=== PATIENT | male | born 1980 | race American Indian/Alaskan Native ===

== ENCOUNTER 2019-04-29 15:41 | Emergency (ER) | payer MEDICAID ==
--- NOTE | 2019-04-29 15:50 | Emergency Department Report ---
Blank Doc - Documentation Documentation: This is a 39-year-old male that presents with n/v and abd pain. Also has right foot numbness and tingling sensation. This initial assessment/diagnostic orders/clinical plan/treatment(s) is/are subject to change based on patient's health status, clinical progression and re-assessment by fellow clinical providers in the ED. Further treatment and workup at subsequent clinical providers discretion. Patient/guardians urged not to elope from the ED as their condition may be serious if not clinically assessed and managed. Initial orders include: 1- Patient sent to [facility] for further evaluation and treatment 2- labs 3- UA
[2019-04-29 16:18] LABS: Basophils # (Auto) 0.1 K/mm3 (0.0-0.1); Basophils % (Auto) 0.7 % (0.0-1.8); Eosinophils # (Auto) 0.2 K/mm3 (0.0-0.4); Eosinophils % (Auto) 1.9 % (0.0-4.3); Hematocrit 43.5 % (35.5-45.6); Hemoglobin 14.8 gm/dl (11.8-15.2); Lymphocytes # (Auto) 1.5 K/mm3 (1.2-5.4); Lymphocytes % (Auto) 16.5 % (13.4-35.0); Mean Corpuscular HGB Conc 34 % (32-34); Mean Corpuscular Volume 97 fl (84-94); Monocytes # (Auto) 0.8 K/mm3 (0.0-0.8); Monocytes % (Auto) 8.5 % (0.0-7.3); Platelet Count 263 K/mm3 (140-440); Red Blood Count 4.49 M/mm3 (3.65-5.03); Red Cell Distribution Width 13.8 % (13.2-15.2)
[2019-04-29 16:29] LABS: Alanine Aminotransferase 24 units/L (7-56); Albumin 4.6 g/dL (3.9-5); BUN/Creatinine Ratio 8; Blood Urea Nitrogen 10 mg/dL (9-20); Calcium 9.4 mg/dL (8.4-10.2); Hemolysis Index 10
[2019-04-29 17:28] LABS: Bilirubin,Urine NEG (Negative); Blood,Urine NEG (Negative); Color,Urine Yellow (Yellow); Mucus,Urine FEW /HPF; Protein,Urine <15 mg/dL mg/dL (Negative); Urobilinogen,Urine < 2.0 mg/dL (<2.0)
[2019-04-29] MEDS ORDERED: TORADOL IV ONE (19:30)
[2019-04-29] MEDS ORDERED: DECADRON IV ONE (19:30)
[2019-04-29] MEDS ORDERED: NACL 0.9% 1000 ML 1,000 ML IV ONE (19:30)
[2019-04-29] MEDS ORDERED: PEPCID IV ONE (19:30)
--- NOTE | 2019-04-29 21:24 | Emergency Department Report ---
ED N/V/D HPI - General Chief complaint: Nausea/Vomiting/Diarrhea Stated complaint: VOMIT/DIZZY/WEIGHT LOSS Time Seen by Provider: 04/29/19 15:50 Source: patient Mode of arrival: Ambulatory Limitations: No Limitations - History of Present Illness Initial comments: Patient is a 39-year-old -Welsh male with no past medical history presents to the ED with complaint of acute onset of persistent nausea and vomiting with diarrhea intermittently for the last 12 hours. Patient also complains of right plantar foot pain intermittently for the last 1 week. Patient stated that he is on his feet was in the day walking around and that he is unable to bear weight on the left foot because of the plantar right foot pain. Patient also states that he has been going through a lot of family stressors and hardly eat a decent meal, and therefore has been losing weight slowly over the last 3 months. Patient denies abdominal pain, dizziness, chest pain, shortness of breath, fever, chills, dysuria, urinary frequency and urgency, hematuria, hematochezia, sore throat or testicular pain and cough. MD complaint: nausea, vomiting, diarrhea, other (right plantar foot pain) -: Sudden, hour(s) (12), This morning Description of Vomiting: food contents, watery, bilious Description of Diarrhea: water Associated Abdominal Pain: No Location: diffuse Radiation: none Severity: moderate Pain Scale: 2 Quality: dull Consistency: intermittent Improves with: none Worsens with: none Context: possible food poisoning Associated Symptoms: denies other symptoms, loss of appetite, malaise, na usea/vomiting. denies: myalgias, chest pain, cough, diaphoresis, fever/chills, headaches, rash, dysuria, shortness of breath, syncope, weakness - Related Data Previous Rx's Medication Instructions Recorded Last Taken Type Azithromycin [Zithromax Z-HU] 250 mg PO DAILY #6 tab 12/08/15 Unknown Rx guaiFENesin/DEXTROMETHORPHAN 1 tab PO BID #10 tab 12/08/15 Unknown Rx [Mucinex DM ER 600-30 mg TAB] traMADol [Ultram 50 MG tab] 50 mg PO Q6HR PRN #15 tablet 12/08/15 Unknown Rx Ibuprofen [Motrin] 600 mg PO Q8H PRN #20 tablet 04/29/19 Unknown Rx Ondansetron [Zofran Odt] 4 mg PO Q6HR #15 tab.rapdis 04/29/19 Unknown Rx Ranitidine HCl [Zantac] 150 mg PO Q12H #20 tablet 04/29/19 Unknown Rx predniSONE [Deltasone] 60 mg PO QDAY #15 tab 04/29/19 Unknown Rx Allergies Allergy/AdvReac Type Severity Reaction Status Date / Time No Known Allergies Allergy Unverified 12/08/15 17:08 ED Review of Systems ROS: Stated complaint: VOMIT/DIZZY/WEIGHT LOSS Other details as noted in HPI Comment: All other systems reviewed and negative Constitutional: no symptoms reported, see HPI, chills, malaise. denies: diaphoresis, fever, weakness, other Eyes: as per HPI. denies: eye pain, eye discharge, vision change ENT: as per HPI. denies: ear pain, throat pain, dental pain, hearing loss, epistaxis, congestion Respiratory: no symptoms reported, see HPI. denies: cough, shortness of breath, SOB with exertion, SOB at rest Cardiovascular: as per HPI. denies: chest pain, palpitations, dyspnea on exertion, edema, syncope, paroxysmal nocturnal dyspnea Endocrine: no symptoms reported, see HPI. denies: excessive sweating, flushing, intolerance to cold, increased hunger, increased thirst, increased urine Gastrointestinal: as per HPI, nausea, vomiting, diarrhea. denies: abdominal pain, constipation, hematemesis, hematochezia Genitourinary: as per HPI. denies: urgency, dysuria, frequency, hematuria, testicular pain, testicular mass Musculoskeletal: as per HPI. denies: back pain, joint swelling, arthralgia Skin: as per HPI. denies: rash, lesions, change in color Neurological: as per HPI. denies: headache, weakness, numbness, paresthesias, confusion Psychiatric: as per HPI. denies: anxiety, depression, auditory hallucinations, visual hallucinations, homicidal thoughts Hematological/Lymphatic: as per HPI ED Past Medical Hx - Past Medical History Hx Asthma: Yes - Surgical History Past Surgical History?: No - Social History Smoking Status: Never Smoker Substance Use Type: Marijuana - Medications Home Medications: Home Medications Medication Instructions Recorded Confirmed Last Taken Type Azithromycin [Zithromax Z-HU] 250 mg PO DAILY #6 tab 12/08/15 Unknown Rx guaiFENesin/DEXTROMETHORPHAN 1 tab PO BID #10 tab 12/08/15 Unknown Rx [Mucinex DM ER 600-30 mg TAB] traMADol [Ultram 50 MG tab] 50 mg PO Q6HR PRN #15 tablet 12/08/15 Unknown Rx Ibuprofen [Motrin] 600 mg PO Q8H PRN #20 tablet 04/29/19 Unknown Rx Ondansetron [Zofran Odt] 4 mg PO Q6HR #15 tab.rapdis 04/29/19 Unknown Rx Ranitidine HCl [Zantac] 150 mg PO Q12H #20 tablet 04/29/19 Unknown Rx predniSONE [Deltasone] 60 mg PO QDAY #15 tab 04/29/19 Unknown Rx ED Physical Exam - General Limitations: No Limitations General appearance: alert, in no apparent distress - Head Head exam: Present: atraumatic, normocephalic, normal inspection - Eye Eye exam: Present: normal appearance, PERRL, EOMI. Absent: scleral icterus, conjunctival injection, nystagmus, periorbital swelling, periorbital tenderness Pupils: Present: normal accommodation - ENT ENT exam: Present: normal exam, normal orophraynx, mucous membranes moist, TM's normal bilaterally, normal external ear exam. Absent: mucous membranes dry - Neck Neck exam: Present: normal inspection, full ROM - Respiratory Respiratory exam: Present: normal lung sounds bilaterally. Absent: respiratory distress, wheezes, chest wall tenderness - Cardiovascular Cardiovascular Exam: Present: regular rate, normal heart sounds. Absent: bradycardia, tachycardia, systolic murmur, diastolic murmur - GI/Abdominal GI/Abdominal exam: Present: soft, normal bowel sounds. Absent: tenderness, guarding, rebound, hyperactive bowel sounds, hypoactive bowel sounds, organomega ly - Rectal Rectal exam: Present: deferred - Extremities Exam Extremities exam: Present: normal inspection, full ROM, tenderness (palpable right plantar foot tenderness), normal capillary refill - Expanded Lower Extremity Exam Right Foot/Toe exam: Present: normal inspection, tenderness (palpable severe tenderness of right plantar foot). Absent: full ROM, abrasion, laceration, ecchymosis, dislocation, erythema, puncture wound, foreign body, calcaneal tenderness Neuro vascular tendon exam: Present: no vascular compromise - Back Exam Back exam: Present: normal inspection, full ROM. Absent: tenderness, CVA tenderness (R), CVA tenderness (L), muscle spasm, paraspinal tenderness, vertebral tenderness - Neurological Exam Neurological exam: Present: alert, oriented X3, CN II-XII intact, normal gait, reflexes normal - Psychiatric Psychiatric exam: Present: normal affect, anxious - Skin Skin exam: Present: warm, dry, intact, normal color ED Course Vital Signs 04/29/19 04/29/19 04/29/19 15:46 19:45 20:01 Temperature 98 F Pulse Rate 94 H Respiratory 20 16 17 Rate Blood Pressure 123/78 O2 Sat by Pulse 100 Oximetry - Reevaluation(s) Reevaluation #1: 04/29/19 21:56 Patient is alert and oriented 3 and is not in distress with normal vital signs. Labs were drawn and patient treated for pain, nausea and vomiting and diarrhea in the ED. On reevaluation, patient's pain is well controlled as well as nausea and vomiting. Patient has kept oral fluids in the ED. Patient is hemodynamically stable. Patient discharged home on medication and advised to follow-up with his primary care physician in 3-5 days for reevaluation or return to the ED immediately if symptoms get worse. ED Medical Decision Making - Lab Data Result diagrams: 04/29/19 15:53 04/29/19 15:53 - Medical Decision Making Patient is alert and oriented 3 and is not in distress with normal vital signs. Labs were drawn and patient treated for pain, nausea and vomiting and diarrhea in the ED. On reevaluation, patient's pain is well controlled as well as nausea and vomiting. Patient has kept oral fluids in the ED. Patient is hemodynamically stable. Patient discharged home on medication and advised to follow-up with his primary care physician in 3-5 days for reevaluation or return to the ED immediately if symptoms get worse. - Differential Diagnosis viral gastroenteritis, vomiting and diarrhea, plantar fasciitis Critical care attestation.: If time is entered above; I have spent that time in minutes in the direct care of this critically ill patient, excluding procedure time. ED Disposition Clinical Impression: Nausea, vomiting and diarrhea, Plantar fasciitis of right foot, Viral gastro enteritis Disposition: - TO HOME OR SELFCARE Is pt being admited?: No Does the pt Need Aspirin: No Condition: Stable Instructions: Plantar Fasciitis (ED), Acute Nausea and Vomiting (ED) Additional Instructions: Take medications with food, drink plenty of fluids and follow up with your primary care physician in 3-5 days. Return to the ED immediately if symptoms get worse. Prescriptions: predniSONE [Deltasone] 60 mg PO QDAY #15 tab Ibuprofen [Motrin] 600 mg PO Q8H PRN #20 tablet PRN Reason: Pain Ranitidine HCl [Zantac] 150 mg PO Q12H #20 tablet Ondansetron [Zofran Odt] 4 mg PO Q6HR #15 tab.rapgustavo Referrals: SARIKA VUONG MD [Primary Care Provider] - 3-5 Days Time of Disposition: 21:24 Print Language: MEXICAN
[2019-04-29 22:01] VITALS: BP 118/67
== END 2019-04-29 21:40 | disposition home or self-care (01) ==
LOC: ED 15:41
DX: A08.4 Viral intestinal infection, unspecified (principal); M72.2 Plantar fascial fibromatosis; J45.909 Unspecified asthma, uncomplicated; F12.10 Cannabis abuse, uncomplicated
CPT/HCPCS: 36415; 80053; 81001; 83690; 85025; 96361; 96374; 96375; 99283; J1100; J1885; J7030

== ENCOUNTER 2019-09-04 14:03 | Emergency (ER) | payer MEDICARE ==
[2019-09-04] MEDS ORDERED: IBUPROFEN 800 MG TAB PO ONE (17:14)
[2019-09-04] MEDS ORDERED: ONDANSETRON 4 MG ODT TAB PO ONE (17:14)
--- NOTE | 2019-09-04 17:22 | Emergency Department Report ---
HPI - General Chief Complaint: Nausea/Vomiting/Diarrhea Time Seen by Provider: 09/04/19 17:14 - HPI HPI: 39 YO MALE COMES TO ER WITH A LIST OF COMPLAINTS. PMH NONE RX NONE DENIES CIG/ETOH OR DRUGS STATES HE LIVES WITH GIRL HE CO ABD PAIN; N/V AND WEAKNESS HE HAS NO VOMITING IN ER INFACT HE IS ASKING FOR FOOD I suspect pt is homeless and this is social visit - he has bags of clothes with him He is ambulatory and in nad ED Past Medical Hx - Past Medical History Previous Medical History?: Yes Hx Asthma: Yes Additional medical history: hernia - Surgical History Past Surgical History?: No - Family History Family history: no significant - Social History Smoking Status: Never Smoker Substance Use Type: None, Marijuana - Medications Home Medications: Home Medications Medication Instructions Recorded Confirmed Last Taken Type Ondansetron [Zofran Odt] 4 mg PO Q8HR PRN #10 tab.rapdis 09/04/19 Unknown Rx ED Review of Systems ROS: Stated complaint: N/V Other details as noted in HPI Comment: All other systems reviewed and negative Physical Exam - Physical Exam Vital Signs: Vital Signs 09/04/19 09/04/19 14:34 14:48 Temperature 99.4 F Pulse Rate 108 H 108 H Respiratory 16 Rate Blood Pressure 96/73 125/74 [Left] O2 Sat by Pulse 96 Oximetry Physical Exam: AMBULATORY TAKING PO S1S2 LUNGS CTA ABD SNT NO CVA TENDERNESS full rom all extremities taking po affect and mood appropriate CN intact alert and oriented no focal deficit ED Course Vital Signs 09/04/19 09/04/19 14:34 14:48 Temperature 99.4 F Pulse Rate 108 H 108 H Respiratory 16 Rate Blood Pressure 96/73 125/74 [Left] O2 Sat by Pulse 96 Oximetry ED Medical Decision Making - Lab Data Result diagrams: 09/04/19 17:18 09/04/19 17:18 - Medical Decision Making Vital Signs 09/04/19 09/04/19 14:34 14:48 Temperature 99.4 F Pulse Rate 108 H 108 H Respiratory 16 Rate Blood Pressure 96/73 125/74 [Left] O2 Sat by Pulse 96 Oximetry Labs 09/04/19 09/04/19 09/04/19 17:18 17:18 18:28 WBC 14.5 H RBC 4.28 Hgb 13.7 Hct 40.5 MCV 95 H MCH 32 MCHC 34 RDW 12.7 L Plt Count 241 Sodium 137 Potassium 3.7 Chloride 100.9 Carbon Dioxide 24 Anion Gap 16 BUN 10 Creatinine 1.0 Estimated GFR > 60 BUN/Creatinine Ratio 10 Glucose 100 Calcium 9.0 Total Bilirubin 0.60 AST 23 ALT 21 Alkaline Phosphatase 81 Total Protein 7.4 Albumin 4.4 Albumin/Globulin Ratio 1.5 Urine Color Straw Urine Turbidity Clear Urine pH 6.0 Ur Specific [place] 1.005 Urine Protein <15 mg/dl Urine Glucose (UA) Neg Urine Ketones Tr Urine Blood Neg Urine Nitrite Neg Urine Bilirubin Neg Urine Urobilinogen < 2.0 Ur Leukocyte Esterase Neg Urine WBC (Auto) < 1.0 Urine RBC (Auto) 1.0 Urine Bacteria (Auto) 1+ LABS NOTED UA NOTED MEDICATED IN ER FOR PAIN AND NAUSEA TAKING PO NON TOXIC NON ILL APPEARING NO FEVER DC HOME WITH PCP FOLLOW UP. Pt verbalizes understanding. on dc vs stalbe pt is taking po, ambulatory and nontoxic - Differential Diagnosis GASTROENTERITIS/UTI/K STONE/PANCREATITIS Critical care attestation.: If time is entered above; I have spent that time in minutes in the direct care o f this critically ill patient, excluding procedure time. ED Disposition Clinical Impression: Vomiting Disposition: DC-01 TO HOME OR SELFCARE Is pt being admited?: No Does the pt Need Aspirin: No Condition: Stable Instructions: Acute Nausea and Vomiting (ED) Additional Instructions: DIET TOLERATED MED ORDERED FOR NAUSEA AVOID ALCOHOL AND DRUGS FOLLOW UP WITH PCP REFERRAL BELOW Prescriptions: Ondansetron [Zofran Odt] 4 mg PO Q8HR PRN #10 tab.rapdis PRN Reason: Vomiting Referrals: PRIMARY CARE, [Primary Care Provider] - 3-5 Days [facility] [Outside] - 3-5 Days Time of Disposition: 19:16
[2019-09-04 17:38] LABS: Hematocrit 40.5 % (35.5-45.6); Hemoglobin 13.7 gm/dl (11.8-15.2); Mean Corpuscular HGB Conc 34 % (32-34); Mean Corpuscular Volume 95 fl (84-94); Platelet Count 241 K/mm3 (140-440); Red Blood Count 4.28 M/mm3 (3.65-5.03); Red Cell Distribution Width 12.7 % (13.2-15.2)
[2019-09-04 18:02] LABS: Alanine Aminotransferase 21 units/L (7-56); Albumin 4.4 g/dL (3.9-5); BUN/Creatinine Ratio 10; Blood Urea Nitrogen 10 mg/dL (9-20); Hemolysis Index 15
[2019-09-04 18:55] LABS: Bacteria,Urine 1+ /HPF (Negative); Bilirubin,Urine NEG (Negative); Blood,Urine NEG (Negative); Color,Urine Straw (Yellow); Protein,Urine <15 mg/dL mg/dL (Negative); Urobilinogen,Urine < 2.0 mg/dL (<2.0); WBC,Urine < 1.0 /HPF (0.0-6.0)
[2019-09-04 19:29] VITALS: BP 116/73
== END 2019-09-04 19:29 | disposition home or self-care (01) ==
LOC: ED 14:03
DX: R10.9 Unspecified abdominal pain (principal); R11.2 Nausea with vomiting, unspecified; J45.909 Unspecified asthma, uncomplicated; F12.10 Cannabis abuse, uncomplicated
CPT/HCPCS: 36415; 80053; 81001; 85027; Q0162

== ENCOUNTER 2020-10-16 05:18 | Emergency (ER) | payer MEDICARE ==
[2020-10-16 05:35] VITALS: BP 102/73
--- NOTE | 2020-10-16 07:33 | Emergency Department Report ---
Chief Complaint: Skin Rash Stated Complaint: RASH Time Seen by Provider: 10/16/20 07:22 - HPI History of Present Illness: 40-year-old -Surinamese male patient with history of asthma presents with complaints of skin lesion to the left lateral thigh and right lower torso x1 year. Patient describes the lesions as itchy and states he picks at them very often. He denies any redness, swelling, drainage, fever/chills/sweats, history of cancer, or pain. Patient states he has not seen a primary care provider or production recovery operator concerning these lesions. He also denies any bony pain or abnormal weight loss. - Exam Vital Signs: Vital Signs 10/16/20 05:32 Temperature 97.6 F Pulse Rate 91 H Respiratory 16 Rate Blood Pressure 102/73 O2 Sat by Pulse 98 Oximetry MSE screening note: Focused history and physical exam performed. Due to findings the following was ordered: ED Medical Decision Making - Medical Decision Making 40-year-old -[place]inames[place] male patient with history of asthma presents with complaints of skin lesion to the left lateral thigh and right lower torso x1 year. Patient describes the lesions as itchy and states he picks at them very often. He denies any redness, swelling, drainage, fever/chills/sweats, history of cancer, or pain. Patient states he has not seen a primary care provider or production recovery operator concerning these lesions. He also denies any bony pain or abnormal weight loss. Lesions appeared to be consistent with some type of keratosis. Recommend follow-up with the production recovery operator for further evaluation and possible skin biopsy. His vitals are normal, he is well-appearing, he is stable for discharge home. Strict return precautions were discussed in detail with patient who verbramiro lized understanding. ED Disposition for MSE Clinical Impression: Skin lesions Disposition: Z- MED SCREENING EXAM-LEFT Is pt being admited?: No Condition: Stable Instructions: Seborrheic Keratosis Referrals: SARIKA VUONG MD [Primary Care Provider] - 3-5 Days AKIKO WINKLER MD [Referring] - 3-5 Days ED Physical Exam - General Limitations: No Limitations General appearance: alert, in no apparent distress - Head Head exam: Present: atraumatic, normocephalic - Eye Eye exam: Present: normal appearance. Absent: scleral icterus - Neck Neck exam: Present: normal inspection - Respiratory Respiratory exam: Absent: respiratory distress - Cardiovascular Cardiovascular Exam: Present: regular rate - Extremities Exam Extremities exam: Present: full ROM - Back Exam Back exam: Present: normal inspection - Neurological Exam Neurological exam: Present: alert, oriented X3 - Psychiatric Psychiatric exam: Present: normal affect, normal mood - Skin Skin exam: Present: warm, dry, intact, normal color, other (1 cm raised dark urine dry skin lesion noted to the lower left lateral thigh and right lateral lower torso without surrounding erythema, drainage, or bleeding). Absent: rash ED Review of Systems ROS: Stated complaint: RASH Other details as noted in HPI Constitutional: denies: chills, fever, malaise, weakness Respiratory: denies: shortness of breath Musculoskeletal: denies: arthralgia Skin: lesions, pruritus. denies: change in color Neurological: denies: numbness, paresthesias
== END 2020-10-16 07:38 | disposition left against medical advice (07) ==
LOC: ED 05:18
DX: R21 Rash and other nonspecific skin eruption (principal); Z53.21 Procedure and treatment not carried out due to patient leaving prior to being seen by health care provider